=== PATIENT | female | born 1990 | race Caucasian/White ===

== ENCOUNTER 2023-06-06 15:22 | Emergency (ER) | payer MEDICAID, OTHER ==
[~2023-06-06] VITALS: Ht 160 cm; Wt 68.7 kg
[2023-06-06 16:46] LABS: Basophils # (auto) 0 10 ^3/uL (0-0.2); Basophils % (auto) 0.5 % (0.0-2.0); Eosinophils # (auto) 0.1 10 ^3/uL (0-0.8); Eosinophils % (auto) 2.7 % (0.0-7.0); Hematocrit 46.1 % (36.0-46.0); Hemoglobin 15.5 g/dL (12.2-16.2); Lymphocytes # (auto) 1.1 10 ^3/uL (0.4-5.4); Lymphocytes % (auto) 23.1 % (10.0-50.0); Mean Corpuscular Hgb Conc. 33.6 g/dL (32.0-36.0); Mean Corpuscular Volume 86.4 fL (80.0-100.0); Monocytes # (auto) 0.6 10 ^3/uL (0-1.3); Neutrophils % (auto) 61.7 % (37.0-80.0); Nucleated Red Blood Cells % 0.1 %; Red Blood Cells 5.33 10^6/uL (4.0-5.20); Red Cell Distribution Width 13.2 % (11.8-14.3); White Blood Cell 4.8 10^3/uL (4.4-10.8)
[2023-06-06 17:08] LABS: Alanine Aminotransferase 14 U/L (7-40); Albumin 4.9 g/dL (3.2-4.8); Alkaline Phosphatase 53 U/L (46-116); Anion Gap 6 (5-15); Aspartate Aminotransferase 17 U/L (13-40); Blood Urea Nitrogen 6 mg/dL (9-23); Calcium 9.9 mg/dL (8.7-10.4); Carbon Dioxide 26 mmol/L (20-30); Chloride 106 mmol/L (98-107); Glucose 84 mg/dL (74-106); Lipase 30 U/L (12-53); Potassium 3.8 mmol/L (3.5-5.1); Sodium 138 mmol/L (136-145)
[2023-06-06 17:09] LABS: Bilirubin, Total 1.1 mg/dL (0.2-1.0); Total Protein 8.2 g/dL (5.7-8.2)
[2023-06-06 17:25] LABS: Urine Bacteria FEW /hpf (None Seen); Urine Blood Negative /uL (Negative); Urine Clarity Clear (Clear); Urine Color Colorless (Yellow); Urine Protein, UAD Negative (Negative); Urine Specific Gravity 1.005 (1.001-1.035); Urine Urobilinogen Normal (Negative); Urine WBC <1 /hpf (0 - 5)
[2023-06-06] MEDS ORDERED: HYDR-4902 PO (18:14)
[2023-06-06] MEDS ORDERED: DICY10CA PO (18:14)
[2023-06-06] MEDS ORDERED: AUG875T PO (18:14)
[2023-06-06] MEDS ORDERED: ZOFR4T PO (18:14)
[2023-06-06] MEDS: SODIUM CHLORIDE 0.9% 1,000 ML IV ONE (18:36)
[2023-06-06] MEDS: ONDANSETRON HCL 4 MG/2 ML VIAL IV ONE (18:36)
[2023-06-06] MEDS: FAMOTIDINE (10MG/ML) 2ML VL IV ONE (18:36)
[2023-06-06] MEDS: MORPHINE SULFATE 4 MG/ML SYR/VIAL IV ONE (18:36)
[2023-06-06 19:24] VITALS: BP 110/80; PULSE 66; RESP 14; TEMP 98; O2SAT 100
== END 2023-06-06 19:26 | disposition home or self-care (01) ==
LOC: ER 15:22
DX: K57.90 Diverticulosis of intestine, part unspecified, without perforation or abscess without bleeding (principal); N20.0 Calculus of kidney
CPT/HCPCS: 36415; 74176; 80053; 81001; 81025; 83690; 85025; 96361; 96374; 96375; 99285; J2270; J2405; J3490; J7030